=== PATIENT | female | born 1935 | race Caucasian/White ===

== ENCOUNTER → 2018-04-01 | Outpatient (CLI) | payer MEDICARE ==
[~2018-04-01] MED LIST: HYDR473S51 PO; ONDA4TAB10 PO; RANI150T4 PO
== END | disposition home or self-care (01) ==
LOC: STAR 13:45
PROVIDERS: ATTEND Thoracic Surgery (Cardiothoracic Vascular Surgery)
DX: Z01.818 Encounter for other preprocedural examination (principal); K44.9 Diaphragmatic hernia without obstruction or gangrene
CPT/HCPCS: 93005

== ENCOUNTER 2018-04-08 08:05 | Observation (INO) | payer MEDICARE ==
[~2018-04-08] VITALS: Ht 162.6 cm; Wt 80.6 kg
[~2018-04-08 08:05] MED LIST changes: +BUPIVACAINE/PF-EPI 0.5% 1:200K ONE; -HYDR473S51 PO
[2018-04-08] MEDS ORDERED: MIDAZOLAM 1 MG/ML, 2ML ONE ×2 (08:29→12:16)
[2018-04-08] MEDS ORDERED: FENTANYL PF 100 MCG/2ML ONE ×4 (08:29→11:57)
[2018-04-08] MEDS ORDERED: OXYcodone IR 5MG TABLET PO ONE (08:30)
[2018-04-08] MEDS ORDERED: GABAPENTIN 300 MG CAPSULE PO ONE (08:30)
[2018-04-08] MEDS ORDERED: ACETAMINOPHEN 500 MG TABLET PO ONE (08:30)
[2018-04-08] MEDS ORDERED: FAMOTIDINE 20 MG TABLET PO ONE (08:30)
[2018-04-08] MEDS ORDERED: ONDANSETRON 2MG/ML, 2ML IVPush ONE (08:30)
[2018-04-08 08:31] VITALS: BP 155/79
[2018-04-08] MEDS ORDERED: LACTATED RINGERS 1,000 ML IV SCH (08:38)
[2018-04-08] MEDS ORDERED: ROCURONIUM 10 MG/ML,10ML ONE (09:14)
[2018-04-08] MEDS ORDERED: PROPOFOL 10 MG/ML, 20ML ONE (09:14)
[2018-04-08] MEDS ORDERED: CEFAZOLIN 1,000 MG ONE (09:14)
[2018-04-08] MEDS ORDERED: SUCCINYLCHOLINE 20 MG/ML, 10ML ONE (09:14)
[2018-04-08] MEDS ORDERED: DEXAMETHASONE 4 MG/ML, 1ML ONE (09:14)
[2018-04-08] MEDS ORDERED: LABETALOL 5MG/ML, 20ML ONE (09:14)
[2018-04-08] MEDS ORDERED: ALBUTEROL SULFATE 2.5 MG/3 ML NPPB PRN (11:00)
[2018-04-08] MEDS ORDERED: MIDAZOLAM 1 MG/ML, 2ML IV PRN (11:00)
[2018-04-08] MEDS ORDERED: ENALAPRILAT 1.25 MG/ML, 2ML IV PRN (11:00)
[2018-04-08] MEDS ORDERED: HYDROcodone/APAP 7.5-325MG/15ML UDC PO PRN (11:00)
[2018-04-08] MEDS ORDERED: hydrALAzine 20 MG/ML, 1ML IV PRN ×2 (11:00)
[2018-04-08] MEDS ORDERED: PROMETHAZINE 25 MG/ML, 1ML IV PRN (11:00)
[2018-04-08] MEDS ORDERED: PROMETHAZINE 25 MG/ML, 1ML IM PRN (11:00)
[2018-04-08] MEDS ORDERED: OXYcodone 5 MG/5 ML ORAL.SOL UDC PO PRN (11:00)
[2018-04-08] MEDS ORDERED: ONDANSETRON 2MG/ML, 2ML IVPush PRN (11:00)
[2018-04-08] MEDS ORDERED: EPHEDRINE 50 MG/ML, 1ML IVPush PRN (11:00)
[2018-04-08] MEDS ORDERED: MORPHINE SULFATE 4 MG/ML, 1ML IVPush PRN (11:00)
[2018-04-08] MEDS ORDERED: PROMETHAZINE 12.5 MG SUPP PR PRN (11:00)
[2018-04-08] MEDS ORDERED: LABETALOL 5MG/ML, 20ML IV PRN (11:00)
[2018-04-08] MEDS ORDERED: ONDANSETRON 2MG/ML, 2ML IV PRN (11:00)
[2018-04-08] MEDS ORDERED: LORazepam 2 MG/ML, 1ML IV PRN (11:00)
[2018-04-08] MEDS ORDERED: MORPHINE SULFATE 4 MG/ML, 1ML IV PRN (11:00)
[2018-04-08] MEDS: FENTANYL PF 100 MCG/2ML IV PRN ×5 (11:30→12:46)
[2018-04-08] MEDS: FAMOTIDINE 20 MG/2 ML IV SCH (13:08)
[2018-04-08 13:46] VITALS: BP 157/85
[2018-04-08] MEDS: LACTATED RINGERS 1,000 ML IV SCH (17:07)
[2018-04-08 19:01] VITALS: BP 130/79
[2018-04-08] MEDS: HYDROcodone/APAP 7.5-325MG/15ML UDC PO PRN (20:27)
[2018-04-09 00:44] VITALS: BP 118/72
[2018-04-09] MEDS: LACTATED RINGERS 1,000 ML IV SCH (01:06)
[2018-04-09] MEDS: FAMOTIDINE 20 MG/2 ML IV SCH (01:08)
[2018-04-09 04:48] VITALS: BP 145/74
[2018-04-09] MEDS: HYDROcodone/APAP 7.5-325MG/15ML UDC PO PRN (07:11)
[2018-04-09 08:55] VITALS: BP 126/76
[2018-04-09] MEDS ORDERED: ENOXAPARIN 40 MG/0.4 ML SQ SCH (09:00)
[2018-04-09] MEDS ORDERED: HYDR473S51 PO (10:00)
[2018-04-09 10:26] VITALS: BP 130/72
== END 2018-04-09 12:00 | disposition home or self-care (01) ==
LOC: OUT 08:05 → ORIP 10:50 → 4NOR 12:55 → DCLOUNGE 04-09 11:42
PROVIDERS: ADMIT Thoracic Surgery (Cardiothoracic Vascular Surgery); ATTEND Thoracic Surgery (Cardiothoracic Vascular Surgery)
DX: K44.9 Diaphragmatic hernia without obstruction or gangrene (principal); K66.0 Peritoneal adhesions (postprocedural) (postinfection); J44.9 Chronic obstructive pulmonary disease, unspecified
CPT/HCPCS: 43282; 71045; 96372; 96374; 96375; 96376; C1781; G0378; J0330; J0690; J1100; J1650; J2250; J2405; J2704; J3010; J7120; S0028

== ENCOUNTER → 2020-03-15 | Outpatient (CLI) | payer MEDICARE ==
[~2020-03-15] MED LIST changes: +ATOR40TA78 PO; -BUPIVACAINE/PF-EPI 0.5% 1:200K ONE; +CALC200T24 PO; +CHOL500045 PO; +HYDR473S51 PO; +NITR100C56 PO; +REGADENOSON 0.4 MG/5 ML SYRINGE ONE; +RIVA15TA PO
== END | disposition home or self-care (01) ==
LOC: CFH 07:39
PROVIDERS: ATTEND Internal Medicine Cardiovascular Disease
DX: I48.0 Paroxysmal atrial fibrillation (principal); R07.89 Other chest pain
CPT/HCPCS: 78452; 93017; A9502; J2785

== ENCOUNTER → 2020-11-23 | Outpatient (CLI) | payer MEDICARE ==
[~2020-11-23] MED LIST changes: -REGADENOSON 0.4 MG/5 ML SYRINGE ONE
[2020-11-23 11:50] LABS: INTERNATIONAL NORMALIZED RATIO 7.99 (0.93-1.1); PROTHROMBIN TIME 82.1 Seconds (9.6-11.5)
== END | disposition home or self-care (01) ==
LOC: LAB 10:50
PROVIDERS: ATTEND Family Medicine
DX: I48.0 Paroxysmal atrial fibrillation (principal); Z79.01 Long term (current) use of anticoagulants
CPT/HCPCS: 36415; 85610